=== PATIENT | female | born 1985 | race Caucasian/White ===

== ENCOUNTER 2017-03-15 16:08 | Emergency (ER) | payer OTHER ==
[~2017-03-15] VITALS: Ht 157.5 cm; Wt 117.7 kg
[~2017-03-15 16:08] MED LIST: PREDNISONE5 MG/1 ML PO; PROAIR HFA8.5 GM IH; ZITHROMAX250 MG PO
[2017-03-15 16:28] LABS: HEMATOCRIT 41.6 % (36.0-46.0); MCH 28.1 PG (29.0-34.0); MCV 87.9 FL (83-99); MEAN PLAT.VOLUME 10.1 uM^3 (9.5-12.4); PLATELET COUNT 353 K/uL (156-360); RBC DIS.WIDTH-CV 14.3 % (11.8-14.6); RBC DIS.WIDTH-SD 46.1 % (39-53); RED BLOOD COUNT 4.73 M/uL (3.80-5.20); WHITE BLOOD COUNT 17.6 K/uL (4.1-10.2)
[2017-03-15 16:36] LABS: CHLORIDE 108 mEq/L (99-109); SODIUM 144 mEq/L (136-147)
[2017-03-15 16:38] LABS: GLUCOSE 88 mg/dL (70-99)
[2017-03-15 16:39] LABS: ANION GAP 8 MEQ/L (2-14)
[2017-03-15 16:40] LABS: TOTAL BILIRUBIN 0.5 mg/dL (0.0-1.0)
[2017-03-15 16:42] LABS: ALKALINE PHOSPHATASE 105 IU/L (3-129); GFR ESTIMATE (CALCULATED) > 59 mL/min/
[2017-03-15 16:43] LABS: UREA NITROGEN (BUN) 8 mg/dL (9-23)
[2017-03-15 16:51] LABS: QUANTITATIVE HCG < 4.0 MIU/ML
[2017-03-15 18:34] LABS: ADD MIUA? YES; BILIRUBIN NEGATIVE; BLOOD NEGATIVE; COLOR YELLOW ((YELLOW)); GLUCOSE (STRIP) NEGATIVE; KETONES NEGATIVE; LEUKOCYTES SMALL; NITRITE NEGATIVE; PROTEIN (STRIP) 30; SPECIFIC GRAVITY 1.021 (1.000-1.030); UROBILINOGEN 0.2 MG/DL (0.2-1.0)
[2017-03-15 18:44] LABS: LIPASE 16 U/L (1.0-51.0)
[2017-03-15 18:46] LABS: BACTERIA NONE SEEN /HPF; EPITHELIAL CELLS 2+ /HPF; MUCUS TRACE /LPF; RED BLOOD CELLS 0-5 /HPF (0-5); UCUL ADDED? YES
[2017-03-15] MEDS ORDERED: MOTRIN800 MG PO (19:44)
[2017-03-15] MEDS ORDERED: BENTYL20 MG PO (19:44)
[2017-03-15] MEDS ORDERED: ZOFRAN4 MG PO (19:44)
[2017-03-15] MEDS ORDERED: BACTRIM,SEPT1 TABLET PO (19:44)
[2017-03-15 20:02] VITALS: BP 122/96
== END 2017-03-15 20:02 | disposition home or self-care (01) ==
LOC: EME 16:08
DX: R10.11 Right upper quadrant pain (principal); N39.0 Urinary tract infection, site not specified; R11.2 Nausea with vomiting, unspecified; F17.200 Nicotine dependence, unspecified, uncomplicated; Z88.0 Allergy status to penicillin; Z88.5 Allergy status to narcotic agent
CPT/HCPCS: 76705; 80053; 81003; 83690; 84702; 85027; 87086; 99281; 99284

== ENCOUNTER 2017-04-23 08:39 | Emergency (ER) | payer OTHER ==
[~2017-04-23] VITALS: Ht 157.5 cm; Wt 116.5 kg
[~2017-04-23 08:39] MED LIST changes: +BACTRIM,SEPT1 TABLET PO; +BENTYL20 MG PO; +MOTRIN800 MG PO; +ZOFRAN4 MG PO
[2017-04-23 08:50] VITALS: BP 143/101
== END 2017-04-23 11:24 | disposition left against medical advice (07) ==
LOC: EME 08:39
DX: B34.9 Viral infection, unspecified (principal); H92.02 Otalgia, left ear; R05 Cough; R11.2 Nausea with vomiting, unspecified; I10 Essential (primary) hypertension; F17.200 Nicotine dependence, unspecified, uncomplicated